=== PATIENT | female | born 2000 | race Caucasian/White ===

== ENCOUNTER 2023-04-05 22:29 | Emergency (ER) | payer SELFPAY ==
[2023-04-06] LABS: SARS-CoV-2 NAA Rapid Test Not Detected (NotDetected)
[2023-04-06] MEDS ORDERED: Dexamethasone 4 MG TAB ONE (00:28)
== END 2023-04-06 00:34 | disposition home or self-care (01) ==
LOC: CSHERS 22:29
DX: B34.9 Viral infection, unspecified (principal); Z20.822 Contact with and (suspected) exposure to COVID-19
CPT/HCPCS: 99283; J8540